=== PATIENT | male | born 1965 ===

== ENCOUNTER 2017-12-29 05:18 | Inpatient (IN) | payer OTHER ==
[2017-12-29] VITALS (11 sets, daily range): BP systolic 132–176; BP diastolic 64–100
[~2017-12-29] VITALS: Ht 175.3 cm; Wt 89.8 kg
[~2017-12-29 05:18] MED LIST: ENALAPRIL MALEA10 MG ORAL; METFORMIN HCL1000 M1 ORAL
[2017-12-29] MEDS ORDERED: Zemuron 50mg/5ml Inj IV ONE (06:11)
[2017-12-29] MEDS ORDERED: Vancomycin 1gm inj IVPB ONE ×2 (06:27→08:45)
[2017-12-29] MEDS ORDERED: Thrombin 5000 units TOPIC ONE ×3 (06:27→07:30)
[2017-12-29] MEDS ORDERED: Ropivacaine 5mg/ml Vial 30ml INJ ONE (06:27)
[2017-12-29] MEDS ORDERED: Bacitracin 50000 Units Vial ONE (06:28)
[2017-12-29] MEDS ORDERED: LR 1000ml 1,000 ML IVLG SCH (06:32)
--- NOTE | 2017-12-29 06:40 | Anethesia Preoperative Eval ---
Anesthesia Pre-op PMH/ROS General Date of Evaluation: Dec 29, 2017 Time of Evaluation: 06:56 Anesthesiologist: Alfonzo ASA Score: ASA 3 Mallampati Score Class I : Soft palate, uvula, fauces, pillars visible Class II: Soft palate, uvula, fauces visible Class III: Soft palate, base of uvula visible Class IV: Only hard plate visible Mallampati Classification: Class III Surgeon: Sneha Diagnosis: Back Pain Surgical Procedure: L4-5, L5-S1 Hemilaminotomy, Decompression Anesthesia History: none Family History: no anesthesia problems Allergies: Coded Allergies: No Known Allergies (Unverified , 12/28/17) Medications: see eMAR Past Medical History Cardiovascular: Reports: HTN, other - HL Endocrine: Reports: DM HEENT: Reports: cataract (L), cataract (R) Other: obesity Anesthesia Pre-op Phys. Exam Physician Exam Last Vital Signs Date Time Temp Pulse Resp B/P (MAP) Pulse Ox O2 Delivery O2 Flow Rate FiO2 12/29/17 06:23 98.3 76 20 167/90 96 Room Air 98.3 Constitutional: NAD Neurologic: CN 2-12 intact Cardiovascular: RRR Respiratory: CTA Gastrointestinal: S/NT/ND Airway Exam Mallampati Classification ASA 3 Mallampati Score: Class III MO: limited ROM: limited Teeth: missing, intact Anesthesia Pre-op A/P Risk Assessment & Plan Assessment: ASA 3 Plan: GA, BIS, GlideScope Go Status Change Before Surgery: No Pre-Antibiotics Dru Grams Ancef IV Given Within 1 Hr of Incision: Yes Time Given: 07:31 Gil Mejía MD Dec 29, 2017 06:40
[2017-12-29] MEDS ORDERED: Lidocaine 1% Plain 30 ml INJ ONE ×3 (06:41→08:00)
--- NOTE | 2017-12-29 06:41 | Immediate Post-Op Evaluation ---
Immediate Post-Op Evalulation Immediate Post-Op Evalulation Procedure: L4-5, L5-S1 Hemilaminotomy, Decompression Date of Evaluation: Dec 29, 2017 Time of Evaluation: 10:03 IV Fluids: 1000 LR Blood Products: 3 Estimated Blood Loss: 75 Urinary Output: 0 Blood Pressure Systolic: 150 Blood Pressure Diastolic: 90 Pulse Rate: 86 Respiratory Rate: 16 O2 Sat by Pulse Oximetry: 100 Temperature (Fahrenheit): 99.3 Pain Score (1-10): 3 Nausea: No Vomiting: No Complications 0 Patient Status: awake, reacts, patent, extubated, none Hydration Status: adequate Dru Grams Ancef IV Given Within 1 Hr of Incision: Yes Time Given: 07:31 Gil Mejía MD Dec 29, 2017 06:41
[2017-12-29] MEDS ORDERED: Atropine Inj 1mg/10ml Syr IV PRN (06:45)
[2017-12-29] MEDS ORDERED: DiphenhydrAMINE 50mg/ml Inj IVP PRN (06:45)
[2017-12-29] MEDS ORDERED: Ketorolac 30mg Inj IV PRN ×2 (06:45)
[2017-12-29] MEDS ORDERED: fentaNYL 100 mcg/2 mL IV PRN (06:45)
[2017-12-29] MEDS ORDERED: Acetaminophen (Non formulary) 100 ML IV ONE (06:45)
[2017-12-29] MEDS ORDERED: Hydromorphone 0.5mg/0.5ml inj IVP PRN (06:45)
[2017-12-29] MEDS ORDERED: HYDROcodone/Acetamin 7.5/325 tab ORAL PRN (06:45)
[2017-12-29] MEDS ORDERED: oxyCODONE HCL/Acetaminophen 5/325mg ORAL PRN (06:45)
[2017-12-29] MEDS ORDERED: Labetalol 5mg/ml 20ml vial IV PRN (06:45)
[2017-12-29] MEDS ORDERED: LORazepam Inj 2mg/ml 1ml IV PRN (06:45)
[2017-12-29] MEDS ORDERED: Norco 5mg/325mg tab ORAL PRN (06:45)
[2017-12-29] MEDS ORDERED: Midazolam 2mg/2ml Inj IVP PRN (06:45)
[2017-12-29] MEDS ORDERED: Lidocaine 1% MPF 10mg/ml 5ml ONE (07:00)
[2017-12-29] MEDS ORDERED: Glycopyrrolate 0.2mg/ml 1ml Vial ONE (07:00)
[2017-12-29] MEDS ORDERED: Midazolam 2mg/2ml Inj ONE (07:00)
[2017-12-29] MEDS ORDERED: Dexamethasone 20mg/5ml IVP ONE (07:00)
[2017-12-29] MEDS ORDERED: Neostigmine 1mg/ml 10ml Inj ONE (07:00)
[2017-12-29] MEDS ORDERED: fentaNYL 100 mcg/2 mL IV ONE (07:00)
[2017-12-29] MEDS ORDERED: Sterile Water Irrig 1000ml IRRIG ONE (07:00)
[2017-12-29] MEDS ORDERED: Sodium Chloride 10ml vial INJ ONE (07:00)
[2017-12-29] MEDS ORDERED: NS Irrig 1000ml ONE (07:00)
[2017-12-29] MEDS ORDERED: Propofol 200mg/20ml IV ONE (07:00)
[2017-12-29] MEDS ORDERED: ceFAZolin sod 1 GM in NS 55 ML IVPB ONE (07:00)
[2017-12-29] MEDS ORDERED: LR 1000ml ONE (07:00)
--- NOTE | 2017-12-29 07:08 | Pre-Procedure Note/Attestation ---
Pre-Procedure Note/Attestation Complete Prior to Procedure Planned Procedure: not applicable Procedure Narrative: L4-5, L5-S1 microdiscectomy, nerve root decompression Indications for Procedure Pre-Operative Diagnosis: HNP trauma radiculopathy Attestation I attest that I discussed the nature of the procedure; its benefits; risks and complications; and alternatives (and the risks and benefits of such alternatives ), prior to the procedure, with the patient (or the patient's legal patient account representative). I attest that, if there was a reasonable possibility of needing a blood transfusion, the patient (or the patient's legal patient account representative) was given the [facility] standardized written summary, pursuant to the Meir Alejandro Blood Safety Act ([place] Health and Safety Code # 1645, as amended). I attest that I re-evaluated the patient just prior to the surgery and that there has been no change in the patient's H&P, except as documented below: HATTIE SNYDER Dec 29, 2017 07:08
[2017-12-29] MEDS ORDERED: Bacitracin 50000 Units Vial IRRIG ONE (07:30)
[2017-12-29] MEDS ORDERED: KERALAC142 G1 TP (09:03)
[2017-12-29] MEDS ORDERED: MULTIVITAMINS1 EAC8 ORAL (09:04)
--- NOTE | 2017-12-29 09:25 | Brief Operative Note ---
Immediate Post Operative Note Operative Note Pre-op Diagnosis: HNP trauma radiculopathy Procedure: Left L4-5 L5-S1 hemilaminotomy, decompression , foraminotomies L4-5 Left microdiscectomy Local SSEP Microdisection Xray Diabetic Post-op Diagnosis: same as pre-op Findings: consistent w/pre-op dx studies Surgeon: Sneha BARRERA [employer] Manager: Gail DOYLE Anesthesiologist: Deepali BARRERA Anesthesia: general Specimen: yes Complications: none Condition: stable Fluids: anesthesia Estimated Blood Loss: minimal Drains: none Implant(s) used?: No HATTIE SNYDER Dec 29, 2017 09:25
[2017-12-29] MEDS ORDERED: D5 1/2NS 1,000 ML IV SCH (12:30)
[2017-12-29] MEDS ORDERED: Naloxone 0.4mg/ml Inj IVP PRN (12:30)
--- NOTE | 2017-12-29 12:32 | Diagnostic Imaging Report ---
Indication: Back pain Comparison: None Findings: Single lateral view of the lumbar spine obtained. Localization image showing a marker posterior to L4. Total fluoroscopic time 3 seconds IMPRESSION: Intraoperative imaging
[2017-12-29] MEDS ORDERED: Tamsulosin 0.4mg cap ORAL ONE (13:35)
[2017-12-29] MEDS: NovoLOG Insulin Flexpen SUBQ SCH ×3 (13:53→21:00)
[2017-12-29] MEDS ORDERED: Chloraseptic Spray 20mL Bottle ORAL PRN (15:00)
[2017-12-29] MEDS: HYDROcodone/Acetamin 10/325 tab ORAL PRN ×3 (15:44→22:42)
[2017-12-29] MEDS: ceFAZolin sod 1 GM in D5W 110 ML IV SCH ×2 (15:46→23:45)
--- NOTE | 2017-12-29 18:15 | Operative Note - Dictated ---
DATE OF OPERATION: 12/30/2015 SURGEON: Jacky Hoover, PhD., M.D. MEDICAL MANAGEMENT SPECIALIST: VIVEK Jackson. ANESTHESIA: Dr. Mejía general with intubation. 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 OPERATIVE PROCEDURE: Left L4 hemilaminotomy, decompression with microdiskectomy. Left L5-S1 manan-laminotomies with nerve root decompression, foraminotomies. Local anesthetic applied by surgeon, high-powered magnified dissection, SSEP monitoring intraoperative fluoroscopy/x-rays interpreted by surgeon. The patient diabetic. DRAINS: None. COMPLICATIONS: None. POSTOPERATIVE CONDITION: Good/stable. SPECIMEN: Disc to pathology, L4-L5. PROCEDURE: The patient was brought to the operating room and in a supine position, general anesthesia with intubation was induced. IV antibiotics were administered 30 minutes prior to incision time. The patient placed in the prone position. Lumbodorsal spine sterilely prepped. Spinal needle was percutaneously placed. Asymmetric midline lumbodorsal spine-strict sterile conditions. Cross-table fluoroscopic image obtained interpreted by surgeons demonstrating the correct level for incision placement. Needle removed. Back re-sterilely prepped and draped free in usual sterile fashion. A longitudinal incision placed midline sharply through dermis and epidermis over the involved intervals subcutaneous tissue dissection and electrocautery. Lumbodorsal fascia incised left in midline over the respective intervals with crossing midline at the interspinous ligament. Marker placed at L4-L5, position confirmed with fluoroscopic imaging. Level marked. Marker removed. Retractors placed. Under high-power magnification, a left hemilaminotomy inferior L4 was performed, followed with identification of the disc, microdiskectomy with specimen. Disk space irrigated with antibiotic-containing saline. No further fragments. The lateral nerve root decompression with foraminotomy. Wound irrigated with antibiotic-containing saline. Bleeding controlled with a combination of bipolar electrocautery, FloSeal, and Gelfoam that was temporarily placed, but removed prior to closure. Bleeding bone cauterized with application of sterile wax. SSEP monitoring stable. Attention turned with retractors placed at the L5-S1 interval. Hemilaminotomy inferior L5 and superior S1 left. Lateral recess decompression. Disk examined without posterior herniation sufficient to warrant diskectomy. Lateral release with foraminotomies excellent decompression of the exiting nerve roots. Bleeding bone cauterized with application of sterile wax. Minimal epidural bleeding controlled with bipolar electrocauterization. Wound irrigated with antibiotic-containing saline. HemoSeal applied over the appropriate intervals. A 1 gram vancomycin powder applied deep to the lumbodorsal fascia. Lumbodorsal fascia and subcutaneous tissue reapproximated with inverted interrupted sutures of Vicryl suture material. Dermis and epidermis reapproximated subcuticularly. Surgical strips transverse to the incision after local anesthetic, 1% lidocaine with epinephrine placed. Bilateral lateral aspects of the incision subcutaneous interval as local anesthetic. Surgical strips and incision in case with Dermabond. Subsequent placement of sterile bandage maintained in place with tape. The patient carefully turned from the prone to the supine position on the transport bed where he was awakened, extubated in the operating room, and transported to postoperative recovery in good stable condition. Jacky Hoover M.D. DR: NIKOLAS JOB#: [id number] CC:
--- NOTE | 2017-12-29 20:15 | Consultation ---
DATE OF CONSULTATION: 12/29/2017 CONSULTING PHYSICIAN: Jon Franklin M.D. REFERRING PHYSICIAN: Jacky Hoover M.D. REASON FOR CONSULTATION: Acute pain consult. Dear Dr. Jacky Hoover, Thank you kindly for consulting me to evaluate and render an opinion as to how to proceed in the management of the patient's acute postoperative lumbar spine pain after multiple level decompressive lumbar spine surgery today. The patient is a 52-year-old gentleman, who injured his back after a fall accident last year. He failed conservative treatment and required multilevel decompressive lumbar spine surgery today. He complained of significant discomfort postoperatively. The patient has multiple medical problems including labile diabetes and labile hypertension. I saw the patient at the bedside with Kyrgyz-speaking seismic interpreter Yesenia DHILLON. I performed a detailed history and physical examination. I reviewed the medical record in detail including multiple records from the hot dimpling machine operator, Dr. Elam including his preoperative evaluation on 12/22/2017 along with diagnostic studies. I also reviewed multiple records from today's date of surgery at [facility] on 12/29/2017 including records from yourself, Dr. Hoover, the pharmacy and nursing department. PAST MEDICAL HISTORY: 1. Acute postoperative lumbar spine pain, status post multiple-level lumbar spine surgery by Dr. Jacky Hoover in December 2017. 2. Fall injury. 3. Labile diabetes. 4. Labile hypertension. 5. Hypercholesterolemia. 6. Distant alcohol usage, quit two years ago. 7. Moderate obesity. PAST SURGICAL HISTORY: Cataract surgery. MEDICATIONS AT HOME: Antidiabetic, anti-pain, and antihypertensives. ALLERGIES: No known drug allergies. FAMILY HISTORY: Noncontributory. SOCIAL HISTORY: The patient is and lives with his stepson. He states he quit drinking alcohol two years ago. He denies tobacco usage. REVIEW OF SYSTEMS: Per Dr. Elam. PHYSICAL EXAMINATION: GENERAL: Age 52, height 5 feet 6 inches, weight 205 pounds, and body mass index 33. VITAL SIGNS: Afebrile, pulse 82, respirations 16, blood pressure 155/92, and oxygen saturation 100% on supplemental nasal cannula oxygen. CHEST: Mildly barrel chested with bibasilar crackles likely secondary to postoperative atelectasis. HEART: Regular rate and rhythm. Positive S4. Normal S1, S2. ABDOMEN: Soft. Moderate obesity. Positive bowel sounds. BACK: Lumbar spine with clean and dry dressing. EXTREMITIES: Significant discomfort with range of motion and straight leg raising. NEUROLOGIC: Nasal cannula oxygen in place. Alert and oriented x3. Moving all extremities x4. No Mario's palsy. No Geena syndrome. Detailed neurologic exam deferred to Dr. Hoover. GENITOURINARY: Deferred to Dr. Elam. DIAGNOSTIC TESTING: Shows 12-lead EKG, heart rate 66 and intraventricular conduction delay. No evidence for acute cardiac ischemia. Preoperative chest x-ray shows negative chest exam on 12/23/2017. MRI of the lumbar spine dated 09/01/2017 shows 4 to 6 mm lumbar spine disc bulges from L2-L3 through S1. Lumbar spine discogram by Dr. Savage Wei on 09/25/2017 is showing severe concordant pain at L4-L5 and L5-S1. LABORATORY STUDIES: On 12/24/2017 showed creatinine 0.8, BUN 16, sodium 138, , chloride 100, bicarb 22, and calcium 9.5. Total protein 7.3. Albumin 2.7. Alkaline phosphatase 88, AST 16, and ALT 19. PTT 30. White count 6, hematocrit 37, and platelets 153,000. INR 1.0. Hepatitis B and C are negative. Hemoglobin A1c is 7.3, elevated. HIV negative. Glucose 164. IMPRESSION: 1. Acute postoperative lumbar spine pain, status post multiple-level lumbar spine surgery by Dr. Jacky Hoover in December 2017. 2. Fall injury. 3. Labile diabetes. 4. Labile hypertension. 5. Hypercholesterolemia. 6. Distant alcohol usage, quit two years ago. 7. Moderate obesity. TREATMENT RECOMMENDATIONS: I have devised the following analgesic plan to help with this patient's pain control postoperatively. He has a supply of hydrocodone already at home. I will start him on Walker 5/325 tablets one every three hours p.r.n. for mild pain. I have ordered double-strength dose of Walker 10/325 one tablet orally every three hours p.r.n. for moderate pain. I have ordered a rescue breakthrough dose of Dilaudid 0.5 mg subcutaneously every three hours p.r.n. for severe breakthrough pain. The patient does not appear to be anxious. I would avoid the class of benzodiazepines at this time, to reduce the risk for potentiation of respiratory depression. I have added a p.r.n. dose of Fioricet in case of any headache complaints. I have ordered Soma 350 mg orally every 8 hours in case of any muscle spasm symptoms. I will empirically place the patient on Protonix 40 mg nightly for GI ulcer prophylaxis and I have also ordered a p.r.n. dose of Mylanta 30 mL q.6 hours in case of any GERD symptom exacerbation. I have ordered Zofran 4 mg intravenously every 4 hours p.r.n. as a rescue anti-emetic. I have ordered Chloraseptic spray to the bedside for any sore throat complaints. I would also recommend dosing the patient with Flomax. As he is 62 years old, he may have difficulty with urinary retention issues postoperatively. I will continue the Flomax on a daily basis during the hospitalization. I will defer the patient's labile diabetes and hypertensive treatment to Dr. Elam. I have ordered incentive spirometer to encourage good pulmonary toilet. The patient does have sequential compression pneumatic devices in place for DVT prophylaxis. Jon Franklin M.D. DR: EITAN JOB#: [id number] CC:
--- NOTE | 2017-12-29 20:18 | Cardiology Progress Note ---
Assessment/Plan Assessment/Plan dm htn lumbar spine injry iss , po diet diabetic oral med tomorrow Objective Last 24 Hour Vital Signs Date Time Temp Pulse Resp B/P (MAP) Pulse Ox O2 Delivery O2 Flow Rate FiO2 12/29/17 15:30 97.8 82 18 132/64 99 Nasal Cannula 3.0 97.8 12/29/17 11:30 97.5 82 16 155/92 100 Nasal Cannula 3.0 97.5 12/29/17 10:45 98.2 68 15 157/89 100 Nasal Cannula 3.0 98.2 12/29/17 10:30 68 14 144/87 100 Nasal Cannula 3.0 12/29/17 10:20 69 16 138/81 100 Nasal Cannula 3.0 12/29/17 10:10 70 18 173/96 100 Simple Mask 6.0 12/29/17 10:05 79 20 176/100 100 Simple Mask 6.0 12/29/17 09:55 83 21 152/94 100 Simple Mask 6.0 12/29/17 09:52 99.3 82 18 150/90 100 Simple Mask 6.0 99.3 12/29/17 09:51 210.7 86 16 100 12/29/17 06:23 98.3 76 20 167/90 96 Room Air 98.3 PARAMJIT WHITE Dec 29, 2017 20:18
[2017-12-30] VITALS (7 sets, daily range): BP systolic 107–153; BP diastolic 47–88
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
[2017-12-30] MEDS: NovoLOG Insulin Flexpen SUBQ SCH ×4 (05:31→21:25)
[2017-12-30] MEDS: Norco 5mg/325mg tab ORAL PRN (06:32)
--- NOTE | 2017-12-30 07:26 | 48 Hour Post Anesthesia Eval ---
Post Anesthesia Evaluation Procedure: L4-5, L5-S1 Hemilaminotomy, Decompression Date of Evaluation: Dec 30, 2017 Time of Evaluation: 07:18 Blood Pressure Systolic: 136 0: 67 Pulse Rate: 94 Respiratory Rate: 18 Temperature (Fahrenheit): 99.8 O2 Sat by Pulse Oximetry: 95 Airway: patent Nausea: No Vomiting: No Pain Intensity: 2 Hydration Status: adequate Cardiopulmonary Status: Stable Mental Status/LOC: patient returned to baseline Follow-up Care/Observations: 0 Post-Anesthesia Complications: 0 Follow-up care needed: N/A Gil Mejía MD Dec 30, 2017 07:26
[2017-12-30] MEDS: ceFAZolin sod 1 GM in D5W 110 ML IV SCH (07:53)
[2017-12-30] MEDS ORDERED: Tamsulosin 0.4mg cap ORAL SCH (09:00)
[2017-12-30] MEDS ORDERED: Enalapril 5mg tab ORAL SCH (09:00)
[2017-12-30] MEDS: metFORMIN 500mg tab ORAL SCH (09:02)
[2017-12-30] MEDS: HYDROcodone/Acetamin 10/325 tab ORAL PRN ×2 (13:48→18:26)
--- NOTE | 2017-12-30 16:45 | Progress Note ---
DATE: 12/30/2017 ACUTE PAIN MANAGEMENT PHYSICIAN PROGRESS NOTE MEDICATIONS: Medication administration record reviewed. Medications include Glucophage, Chloraseptic spray, Protonix, Zofran, Narcan, insulin, Dilaudid, [place], Vasotec, Benadryl, Catapres, Soma, Mylanta, and Fioricet. LABORATORY STUDIES: No interval laboratory studies. VITAL SIGNS: Current temperature 99.8, pulse 94, respirations 18, blood pressure 136/67, and oxygen saturation 95% on room air. I spent over 60 minutes in consultation today. Hospitalist, Dr. Elam, evaluated the patient yesterday evening. The patient has a labile diabetes. The patient did have low-grade fevers overnight. I encouraged aggressive incentive spirometer usage. The patient already has several medications, which already include Tylenol including [place] and Fioricet. I did encourage the nurses to use these pain medications with Tylenol as an antipyretic as well. The patient has been alternating doses of Dilaudid and hydrocodone for adequate analgesia. He has been able to sleep at times. Physical therapy training will start in the morning as the patient has not yet been out of bed. He will continue with sequential compression pneumatic foot devices for DVT prophylaxis. Incentive spirometer has been in-use at the bedside, which will help with pulmonary toilet and his postoperative low-grade fevers. In light of his diabetes, aggressive incentive spirometer usage to help reduce postoperative pulmonary infections. I would continue his current analgesic regimen with p.r.n. Soma, [place], and Dilaudid at this time. The patient already was dispensed [place] by Dr. Hoover' office last week. The patient will continue to advance his diet as tolerated. He tolerated diabetic clear liquids without any difficulty for dinner. I have asked the nurse to advance his diet this morning for breakfast to trial if he can tolerate it an advance diet without nausea symptoms. The patient has been voiding urine without any difficulties, and I will discontinue the Flomax, which I ordered earlier, which will be unnecessary at this time after his one time dose yesterday. Dr. Elam will continue to manage the patient's labile diabetic disease. Jon Franklin M.D. DR: IZZY JOB#: [id number] CC:
--- NOTE | 2017-12-30 19:27 | Cardiology Progress Note ---
Assessment/Plan Assessment/Plan 1. Lumbar spine injury. 2. Diabetes mellitus. 3. Hypertension. bs 105-204 bop seem ok on 09/21 dsoe of vasotec however he id dizzy will dc vasotec for now need to walk no bm yet but posterior approach should not affect his bm Subjective Cardiovascular: Reports: chest pain Respiratory: Reports: shortness of breath Gastrointestinal/Abdominal: Reports: abdominal pain Genitourinary: Reports: burning Objective Last 24 Hour Vital Signs Date Time Temp Pulse Resp B/P (MAP) Pulse Ox O2 Delivery O2 Flow Rate FiO2 12/30/17 16:00 98.0 83 17 122/69 96 98.0 12/30/17 12:00 98.5 66 16 107/47 98 98.5 12/30/17 09:01 133/73 12/30/17 08:00 99.2 99 19 133/73 98 99.2 12/30/17 07:26 211.6 94 18 95 12/30/17 06:32 99.8 12/30/17 04:00 99.8 94 18 136/67 95 Room Air 99.8 12/30/17 00:08 98.3 87 20 146/69 96 Room Air 98.3 12/29/17 20:56 98.4 82 19 144/73 96 98.4 General Appearance: alert Neck: supple Cardiovascular: normal rate, regular rhythm Respiratory/Chest: lungs clear, normal breath sounds Abdomen: normal bowel sounds, non tender, soft Extremities: no swelling Intake and Output 12/29/17 12/30/17 19:00 07:00 Intake Total 1385 ml 1650 ml Output Total 30 ml 800 ml Balance 1355 ml 850 ml IV Total 1385 ml Other 1650 ml Output Urine Total 800 ml Stool Total 0 ml Estimated Blood Loss 30 ml # Voids 10 PARAMJIT WHITE Dec 30, 2017 19:27
[2017-12-31] MEDS: HYDROcodone/Acetamin 10/325 tab ORAL PRN ×3 (01:05→15:17)
[2017-12-31 04:00] VITALS: BP 153/85
[2017-12-31] MEDS: NovoLOG Insulin Flexpen SUBQ SCH ×2 (05:41→12:08)
[2017-12-31] MEDS ORDERED: Milk of Magnesia 30ml Ud ORAL ONE (07:00)
[2017-12-31] MEDS: metFORMIN 500mg tab ORAL SCH (08:34)
[2017-12-31 08:38] LABS: ANION GAP 8 mmol/L (5-15); BLOOD UREA NITROGEN 8 mg/dL (7-18); CALCIUM 8.8 MG/DL (8.5-10.1); CARBON DIOXIDE 27 MMOL/L (21-32); CHLORIDE 100 MMOL/L (98-107); CREATININE 0.9 MG/DL (0.55-1.30); POTASSIUM 3.5 MMOL/L (3.5-5.1); SODIUM 135 MMOL/L (136-145)
[2017-12-31 12:01] VITALS: BP 149/75
[2017-12-31] MEDS: Norco 5mg/325mg tab ORAL PRN (12:06)
--- NOTE | 2017-12-31 16:30 | Progress Note ---
DATE: 12/31/2017 ACUTE PAIN MANAGEMENT PHYSICIAN PROGRESS NOTE MEDICATIONS: Medication administration record reviewed. Medications include Fioricet, Mylanta, Soma, Catapres, Benadryl, [place], Dilaudid, insulin, Glucophage, Narcan, Protonix and Chloraseptic. LABORATORY STUDIES: Chemistry panel is pending for this morning. VITAL SIGNS: Afebrile, pulse 87, respirations 18, blood pressure 153/85, and oxygen saturation 95% on room air. I spent over 60 minutes in consultation today. I saw the patient at bedside with the nurse RN, Destiny, along with charge nurse, RN, Mary, who translated Maori. Morning chemistry labs have been ordered by Dr. Elam, who is following his labile diabetes. At the present time, the patient states his pain is approximately 5/10. He has been using primarily doses of p.r.n. [place] for primary analgesia. Intermittently, he has used the subcutaneous Dilaudid and Soma as well. His analgesic regimen seems to be relatively adequate. Moving in and out of bed with Physical Therapy still seems to be a chore with this patient. I did encourage aggressive ambulation and physical therapy. We will continue to actively work with this patient to increase his mobility. He will continue with sequential compression pneumatic devices for DVT prophylaxis. Incentive spirometer remains at the bedside and we encouraged aggressive usage to induce pulmonary toilet. The patient already has a good supply of [place] at home for outpatient usage. Dr. Elam will continue to manage the patient's multiple medical issues including his labile diabetes and determine discharge planning. I will continue his current analgesic regimen at this time. Jon Franklin M.D. DR: ALBERTO JOB#: [id number] CC:
--- NOTE | 2018-01-01 11:32 | Discharge Summary ---
Discharge Summary Hospital Course Date of Admission Dec 29, 2017 at 11:48 Date of Discharge Dec 31, 2017 at 15:52 Admitting Diagnosis lumbar discogenic back pain Reason for Hospitalization: elective surgery HPI Montez Blunt is a 52 year old male who was admitted on Dec 29, 2017 at 11:48 for Lumbar Discogenic Back Pain Consultations dr Elam- IM, letterset press set up operator dr Franklin - pain specialist Procedures s/p 12/29/[address] Hoover Left L4 hemilaminotomy, decompression with microdiskectomy. Left L5-S1 manan-laminotomies with nerve root decompression, foraminotomies. Local anesthetic applied by surgeon High-powered magnified dissection, SSEP monitoring Intraoperative fluoroscopy/x-rays interpreted by surgeon. Hospital Course s/p surgery course of recovery uneventful initially IVF pain management, pain specialist followed neurovascular status closely monitored dressing C/D/I fall precautions, PT encouraged OOB and ambulate with PT as tolerated IS at the bedside, patient was taught how to use and encourage to use when in the bed for pulmonary hygiene SCD for DVT prophylaxis GI prophylaxis BS management with metformin and SS insulin as needed BP stable, off Vasotec for now due to dizziness as per cardio, until dizziness resolved voided tolerated diet pain controlled with current regimen ambulated neurovascular status stable incision clean patient was stable for dc home outp fup with surgeon as advised dc instructions provided patient had supply of analgesics at home FINAL DIAGNOSIS Posttraumatic herniated nucleus pulposus radiculopathy s/p Left L4-5 L5-S1 hemilaminotomy, decompression , foraminotomies. L4-5 Left microdiscectomy HTN labile Diabetes mellitus Hypercholesteremia Discharge Medications Continued Medications: Enalapril Maleate* (Enalapril Maleate*) 10 Mg Tablet 10 MG ORAL BID, TAB (This prescription has been renewed) Metformin Hcl* (Metformin Hcl*) 1,000 Mg Tablet 1000 MG ORAL DAILY, TAB (This prescription has been renewed) Discharge Discharge Disposition Patient was discharged to Home () Discharge Instructions Discharge Instructions Special Instructions I have been assigned to complete a D/C Summary on this account. I was not involved in the patient management Roxi Darnell NP ([place]) Jan 01, 2018 11:32
== END 2017-12-31 15:52 | disposition home or self-care (01) | DRG 520 ==
LOC: SUR 05:18 → 3E 11:48
PROC: 01NB0ZZ Release Lumbar Nerve, Open Approach (ICD-10-PCS; principal; 2017-12-29 07:00)
PROC: 0SB40ZZ Excision of Lumbosacral Disc, Open Approach (ICD-10-PCS; principal; 2017-12-29 07:00)
PROC: 0SB20ZZ Excision of Lumbar Vertebral Disc, Open Approach (ICD-10-PCS; principal; 2017-12-29 07:00)
DX: M51.16 Intervertebral disc disorders with radiculopathy, lumbar region (principal); M51.17 Intervertebral disc disorders with radiculopathy, lumbosacral region; G89.18 Other acute postprocedural pain; E11.9 Type 2 diabetes mellitus without complications; I10 Essential (primary) hypertension; E66.9 Obesity, unspecified; Z68.29 Body mass index [BMI] 29.0-29.9, adult; E78.00 Pure hypercholesterolemia, unspecified
CPT/HCPCS: 36415; 72020; 76001; 80048; 82962; 86850; 86900; 86901; 87081; 94003; 94150; J1815; J2250; J2405; J2710